=== PATIENT | male | born 1950 | race Caucasian/White ===

== ENCOUNTER 2021-08-21 06:47 | Day surgery (SDC) | payer MEDICARE, OTHER ==
[2021-08-21] VITALS (14 sets, daily range): BP systolic 133–196; BP diastolic 68–91
[~2021-08-21] VITALS: Ht 172.7 cm; Wt 74.0 kg
[2021-08-21] MEDS ORDERED: normal saline 1000ml 1,000 ML IV SCH (07:15)
[2021-08-21] MEDS ORDERED: FAMO10TA41 PO (07:24)
[2021-08-21] MEDS ORDERED: TADA5TAB2 PO (07:24)
[2021-08-21] MEDS ORDERED: ATOR10TA87 PO (07:24)
[2021-08-21 08:32] LABS: BASOPHILS # (AUTO) 0.1 X10'3 (0-0.2); BASOPHILS % (AUTO) 0.7 % (0-1); EOSINOPHILS # (AUTO) 0.1 X10'3 (0-0.9); EOSINOPHILS % (AUTO) 1.1 % (0-6); HEMATOCRIT 43.7 % (42.0-52.0); HEMOGLOBIN 14.9 g/dl (14.0-17.9); LYMPHOCYTES # (AUTO) 1.7 X10'3 (1.1-4.8); LYMPHOCYTES % (AUTO) 21.8 % (21-51); MEAN CORPUSCULAR HEMOGLOBIN 31.8 PG (27.0-31.0); MEAN CORPUSCULAR VOLUME 93.6 FL (78-98); MEAN PLATELET VOLUME 9.3 FL (7.4-10.4); MONOCYTES # (AUTO) 0.8 X10'3 (0-0.9); MONOCYTES % (AUTO) 9.6 % (2-12); NEUTROPHILS # (AUTO) 5.2 X10'3 (1.8-7.7); NEUTROPHILS % (AUTO) 66.8 % (42-75); PLATELET COUNT 147 X10'3 (140-440); RED BLOOD COUNT 4.67 X10'6 (4.70-6.10); RED CELL DISTRIBUTION WIDTH 14.4 % (11.5-14.5); WHITE BLOOD COUNT 7.8 X10'3 (4.5-11.0)
[2021-08-21] MEDS ORDERED: fentaNYL/PF 50MCG/1 ML 2ML syringe ONE (09:02)
[2021-08-21] MEDS ORDERED: midazolam 1 mg/ML 2ml injection ONE (09:02)
== END 2021-08-21 11:15 | disposition home or self-care (01) ==
LOC: SSTAY O 06:47
PROVIDERS: ATTEND Preventive Medicine Aerospace Medicine
DX: R59.0 Localized enlarged lymph nodes (principal); C61 Malignant neoplasm of prostate; Z88.5 Allergy status to narcotic agent; Z79.899 Other long term (current) drug therapy
CPT/HCPCS: 36415; 38505; 77012; 85025; 88184; 88185; 99152; 99153; J2250; J3010; J7030; 88305; 88341; 88342

== ENCOUNTER 2022-08-01 06:58 | Day surgery (SDC) | payer MEDICARE, OTHER ==
[2022-07-30 09:02] LABS: BASOPHILS % (AUTO) 0.5 % (0-1); EOSINOPHILS # (AUTO) 0.1 X10'3 (0-0.9); EOSINOPHILS % (AUTO) 1.2 % (0-6); HEMOGLOBIN 13.5 g/dl (14.0-17.9); LYMPHOCYTES # (AUTO) 0.8 X10'3 (1.1-4.8); LYMPHOCYTES % (AUTO) 12.2 % (21-51); MEAN CORPUSCULAR HEMOGLOBIN 31.8 PG (27.0-31.0); MEAN CORPUSCULAR HGB CONC 34.5 g/dL (33.0-36.5); MEAN PLATELET VOLUME 8.2 FL (7.4-10.4); MONOCYTES # (AUTO) 0.5 X10'3 (0-0.9); MONOCYTES % (AUTO) 7.7 % (2-12); NEUTROPHILS # (AUTO) 5.3 X10'3 (1.8-7.7); NEUTROPHILS % (AUTO) 78.4 % (42-75); PLATELET COUNT 164 X10'3 (140-440); RED BLOOD COUNT 4.24 X10'6 (4.70-6.10); RED CELL DISTRIBUTION WIDTH 14.8 % (11.5-14.5); WHITE BLOOD COUNT 6.8 X10'3 (4.5-11.0)
[2022-07-30 09:10] LABS: APTT 28 SECONDS (22-32)
[2022-07-30 09:13] LABS: ALANINE AMINOTRANSFERASE 27 U/L (12-78); ALBUMIN 4.1 G/DL (3.4-5.0); ALBUMIN/GLOBULIN RATIO 1.1 (1.1-1.5); ALKALINE PHOSPHATASE 95 IU/L (46-116); ANION GAP 8 (8-16); ASPARTATE AMINO TRANSFERASE 21 U/L (10-37); BILIRUBIN,TOTAL 0.5 MG/DL (0.1-1.0); BLOOD UREA NITROGEN 24 MG/DL (7-18); BUN/CREATININE RATIO 9.4 (5.4-32.0); CALCIUM 9.1 MG/DL (8.5-10.1); CHLORIDE 105 MMOL/L (99-107); CREATININE 2.54 MG/DL (0.60-1.10); GLUCOSE 106 MG/DL (70-104); POTASSIUM 4.2 MMOL/L (3.5-5.1); SODIUM 143 MMOL/L (135-145); TOTAL CARBON DIOXIDE 29.7 MMOL/L (24-32); TOTAL PROTEIN 7.8 G/DL (6.4-8.2); eGFR 25 ML/MIN
[2022-08-01] VITALS (10 sets, daily range): BP systolic 120–169; BP diastolic 75–108
[~2022-08-01] VITALS: Ht 175.3 cm; Wt 76.7 kg
[~2022-08-01 06:58] MED LIST: ATOR10TA87 PO; FAMO10TA41 PO; TADA5TAB2 PO
[2022-08-01] MEDS ORDERED: diphenhydrAMINE 25mg capsule PO PRN (07:15)
[2022-08-01] MEDS ORDERED: normal saline 1,000 ML IV SCH (07:15)
[2022-08-01] MEDS ORDERED: LORazepam 0.5 MG tablet PO PRN (07:15)
[2022-08-01] MEDS ORDERED: nitroGLYCERIN 0.4mg SUBLingual tab SL PRN ×2 (07:15→11:15)
[2022-08-01 07:38] LABS: CLARITY,URINE CLEAR (Clear); COLOR,URINE YELLOW (Yellow); GLUCOSE, URINE NEGATIVE (Neg); KETONES,URINE NEGATIVE (Neg); LEUKOCYTE ESTERASE ,URINE NEGATIVE (Neg); NITRITES, URINE NEGATIVE (Neg); OCCULT BLOOD,URINE NEGATIVE (Neg); PROTEIN,URINE NEGATIVE (Neg); UROBILINOGEN,URINE 0.2 E.U/dL (0.2-1.0)
[2022-08-01 07:47] LABS: UA COLLECTION TYPE NON-SPECIFIED
[2022-08-01] MEDS ORDERED: OMEP20CA16 PO (08:00)
[2022-08-01] MEDS ORDERED: LIDOcaine 1%/PF 5ML 10 MG/ML VIAL ONE (08:06)
[2022-08-01] MEDS ORDERED: iohexol 350MG/ML 100ml bottle IV ONE (08:07)
[2022-08-01] MEDS ORDERED: fentaNYL/PF 50MCG/1 ML 2ML syringe ONE (08:07)
[2022-08-01] MEDS ORDERED: midazolam 1 mg/ML 2ml injection ONE (08:07)
[2022-08-01] MEDS ORDERED: ASPI-1397 PO (08:09)
[2022-08-01] MEDS ORDERED: GLUC-237 (08:09)
[2022-08-01] MEDS ORDERED: CO Q-10 (08:09)
[2022-08-01] MEDS ORDERED: CALC1TAB PO (08:09)
[2022-08-01] MEDS ORDERED: MULT-1085 PO (08:09)
[2022-08-01] MEDS ORDERED: CRAN500C4 PO (08:09)
[2022-08-01] MEDS ORDERED: VITAMIN B12 (08:09)
[2022-08-01] MEDS ORDERED: MAGNESIUM (08:09)
[2022-08-01] MEDS ORDERED: TUMERIC (08:09)
[2022-08-01] MEDS ORDERED: GLUCOSAMINE (08:09)
[2022-08-01] MEDS ORDERED: KRILL OIL (08:09)
[2022-08-01 10:19] LABS: ISTAT HGB ART 10.2 g/dl (14.0-18.0); ISTAT Hct ART 30 %PCV (42-52); ISTAT O2 SATURATION ARTERIAL 98 % (95-98); ISTAT SOURCE ART
--- NOTE | 2022-08-01 10:59 | NUR ---
Contacted pt's as per patient request. Pt agreeing to discharge time.
[2022-08-01] MEDS ORDERED: OXAZEpam 15mg capsule PO PRN (11:15)
[2022-08-01] MEDS ORDERED: ondansetron/PF 4mg/2ml inj IV PRN (11:15)
[2022-08-01] MEDS ORDERED: proCHLORperazine 10 MG/2 ml inj IV PRN (11:15)
[2022-08-01] MEDS ORDERED: normal saline 1000ml 1,000 ML IV SCH (11:15)
[2022-08-01 11:50] LABS: ISTAT Hct MIX 33 %PCV (42-52); ISTAT O2 SATURATION MIX VENOUS 74 % (60-80); ISTAT SOURCE OTHER
[2022-08-01 11:51] LABS: ISTAT Hct MIX 33 %PCV (42-52); ISTAT O2 SATURATION MIX VENOUS 64 % (60-80); ISTAT SOURCE VEN
[2022-08-01 11:51] LABS: ISTAT Hct MIX 33 %PCV (42-52); ISTAT O2 SATURATION MIX VENOUS 70 % (60-80); ISTAT SOURCE VEN
[2022-08-01 11:51] LABS: ISTAT Hct MIX 33 %PCV (42-52); ISTAT O2 SATURATION MIX VENOUS 64 % (60-80); ISTAT SOURCE VEN
[2022-08-01 11:51] LABS: ISTAT Hct MIX 32 %PCV (42-52); ISTAT O2 SATURATION MIX VENOUS 68 % (60-80); ISTAT SOURCE VEN
--- NOTE | 2022-08-01 14:00 | NUR ---
Pt states he "has to pee but I can't". Pt attempting to use urinal and bedpan with no success. Bladder scanning pt.
--- NOTE | 2022-08-01 14:12 | NUR ---
Pt has 538ml urine by scanning. Pt agrees to Gomez catheter insertion.
--- NOTE | 2022-08-01 14:20 | NUR ---
Shaunna joel RN successfully placed Gomez catheter. Pt drained 520ml clear, yellow by catheter.
--- NOTE | 2022-08-01 15:54 | NUR ---
Gomez catheter dc'd, pt was able to void, 50ml yellow, clear.
[2022-08-02 11:32] LABS: PSA, FREE <0.01 ng/mL
== END 2022-08-01 16:10 | disposition home or self-care (01) ==
LOC: SSTAY O 06:58
PROVIDERS: ATTEND Internal Medicine Cardiovascular Disease
DX: R94.39 Abnormal result of other cardiovascular function study (principal); I08.1 Rheumatic disorders of both mitral and tricuspid valves; Z79.01 Long term (current) use of anticoagulants; N18.4 Chronic kidney disease, stage 4 (severe); I25.10 Atherosclerotic heart disease of native coronary artery without angina pectoris; Z87.891 Personal history of nicotine dependence; Z79.899 Other long term (current) drug therapy; Z98.890 Other specified postprocedural states; R35.1 Nocturia
CPT/HCPCS: 36415; 71046; 80053; 81003; 82803; 83880; 84153; 84154; 85014; 85025; 85610; 85730; 93005; 93460; 99152; 99153; C1751; C1758; C1760; C1769; J1644; J2250; J3010; J3490; J7030; Q0163; Q9967; A4314; A4620; A6258

== ENCOUNTER 2022-10-14 15:02 | Emergency (ER) | payer MEDICARE, OTHER ==
[~2022-10-14] VITALS: Ht 175.3 cm; Wt 75.0 kg
[~2022-10-14 15:02] MED LIST changes: +ACAI500C PO; +ASPI-1397 PO; +BEET ROOT PO; +CALC1TAB PO; +CINSULIN PO; +CO Q-10 PO; +CRAN500C4 PO; -FAMO10TA41 PO; +GLUC-237 PO; +HYDR-3972 PO; +LEUP3.753 IM; +LOP12.5T PO; +MAGNESIUM PO; +MULT-1085 PO; +OMEP20CA16 PO; +SIME125C97 PO; +TUMERIC PO; +VITAMIN B12 PO; +[UNRECOGNIZED DRUG - OTHER] PO
[2022-10-14] MEDS ORDERED: aspirin 81mg tab.chew PO ONE (15:05)
[2022-10-14 15:29] LABS: BASOPHILS # (AUTO) 0.1 X10'3 (0-0.2); BASOPHILS % (AUTO) 0.7 % (0-1); EOSINOPHILS # (AUTO) 0.1 X10'3 (0-0.9); EOSINOPHILS % (AUTO) 0.9 % (0-6); HEMOGLOBIN 10.4 g/dl (14.0-17.9); LYMPHOCYTES # (AUTO) 1.6 X10'3 (1.1-4.8); MEAN CORPUSCULAR HEMOGLOBIN 29.3 PG (27.0-31.0); MEAN CORPUSCULAR HGB CONC 33.5 g/dL (33.0-36.5); MEAN CORPUSCULAR VOLUME 87.3 FL (78-98); MEAN PLATELET VOLUME 8.6 FL (7.4-10.4); MONOCYTES # (AUTO) 1.3 X10'3 (0-0.9); NEUTROPHILS # (AUTO) 8.2 X10'3 (1.8-7.7); NEUTROPHILS % (AUTO) 72.4 % (42-75); PLATELET COUNT 217 X10'3 (140-440); RED BLOOD COUNT 3.55 X10'6 (4.70-6.10); RED CELL DISTRIBUTION WIDTH 15.1 % (11.5-14.5); WHITE BLOOD COUNT 11.3 X10'3 (4.5-11.0)
[2022-10-14 15:45] LABS: ALANINE AMINOTRANSFERASE 20 U/L (12-78); ALBUMIN 3.4 G/DL (3.4-5.0); ALKALINE PHOSPHATASE 112 IU/L (46-116); ANION GAP 11 (8-16); ASPARTATE AMINO TRANSFERASE 20 U/L (10-37); BILIRUBIN,TOTAL 0.3 MG/DL (0.1-1.0); BLOOD UREA NITROGEN 38 MG/DL (7-18); CALCIUM 8.5 MG/DL (8.5-10.1); CHLORIDE 104 MMOL/L (99-107); CREATININE 2.38 MG/DL (0.60-1.10); GLUCOSE 116 MG/DL (70-104); POTASSIUM 3.6 MMOL/L (3.5-5.1); SODIUM 139 MMOL/L (135-145); TOTAL PROTEIN 6.9 G/DL (6.4-8.2); eGFR 27 ML/MIN
[2022-10-14] MEDS ORDERED: nitroGLYCERIN 0.4mg/hour patch TD ONE (17:16)
[2022-10-14 18:15] VITALS: BP 109/68
[2022-10-14] MEDS ORDERED: FURO40TA4 PO (19:14)
== END 2022-10-14 19:50 | disposition home or self-care (01) ==
LOC: ER 15:03
DX: R07.89 Other chest pain (principal); Z88.5 Allergy status to narcotic agent; Z88.8 Allergy status to other drugs, medicaments and biological substances
CPT/HCPCS: 36415; 71046; 80053; 83880; 84484; 85025; 93005; 99285